=== PATIENT | female | born 2000 | race Hispanic/Latino ===

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

== ENCOUNTER 2023-10-24 15:24 | Emergency (ER) | payer SELFPAY ==
[~2023-10-24] VITALS: Ht 157.5 cm; Wt 81.6 kg
[~2023-10-24 15:24] MED LIST: MECLIZINE HCL12.5 MG PO
[2023-10-24 15:43] VITALS: PULSE 96; RESP 18; TEMP 99; O2SAT 98
[2023-10-24] MEDS ORDERED: DOXYCYCLINE HY100 MG PO (16:02)
== END 2023-10-24 16:09 | disposition home or self-care (01) ==
LOC: FSED 15:30
DX: R21 Rash and other nonspecific skin eruption (principal)
CPT/HCPCS: 99283